=== PATIENT | female | born 1995 | race Caucasian/White ===

== ENCOUNTER 2017-04-08 19:42 | Inpatient (IN) | payer BC, OTHER ==
[2017-04-08 20:31] VITALS: BMI 25.2
[2017-04-08 21:04] LABS: BASO # 0.1 K/uL (0.0-0.2); BASO % 0.7 % (0.0-2.0); EOS # 0.1 K/uL (0.0-0.7); EOS % 0.6 % (0.0-4.0); HEMOGLOBIN 13.5 g/dL (12.0-16.0); LYMPH # 3.2 K/uL (1.0-4.3); LYMPH % 31.4 % (20.0-40.0); MEAN CELL VOLUME 85.6 fl (81.0-99.0); MEAN CORPUSCULAR HEMOGLOBIN 29.4 pg (27.0-31.0); MEAN CORPUSCULAR HGB CONC 34.3 g/dL (33.0-37.0); MEAN PLATELET VOLUME 11.3 fl (7.2-11.7); MONO # 0.8 K/uL (0.0-0.8); MONO % 8.2 % (0.0-10.0); NEUT % 59.1 % (50.0-75.0); NRBC % 0.1 % (0.0-0.0); RBC 4.6 Mil/uL (3.80-5.20); RED CELL DISTRIBUTION WIDTH 15.7 % (11.5-14.5); WHITE BLOOD COUNT 10.1 K/uL (4.8-10.8)
[2017-04-08] MEDS: Lactated Ringer's 1,000 ML IV SCH (21:16)
[2017-04-09] MEDS ORDERED: Nalbuphine 20 mg/ml Inj (1 ml) IVP STA (00:58)
[2017-04-09] MEDS ORDERED: Nalbuphine 20 mg/ml Inj (1 ml) ONE (01:00)
[2017-04-09] MEDS: Lactated Ringer's 1,000 ML IV SCH ×2 (05:13→06:49)
[2017-04-09] MEDS ORDERED: Fentanyl/Bupivacaine HCl 250 ML EPI ONE (06:55)
[2017-04-09] MEDS ORDERED: Lidocaine 1% Inj (20ml) ONE (08:23)
--- NOTE | 2017-04-09 09:01 | OBPN ---
Datetime: 04/09/2017 08:57 IP Progress Impression: Normal progression of labor IP Procedures: Sterile Vag Exam IP Progress Plan: Continue present management Membranes, Provider: Intact Contraction Comments Provider: q2-3min FHR - Baseline A Provider: 130s IP Progress Note Comment: Patient without complaints. Labor progressing well. Continue current manag ement. Maternal well-being and well-being reassuring at this time. Vital Signs Provider: Reviewed; Within Normal Limits FHR Category Provider Fetus A: Category I NICHD Variability Prov Fetus A: Moderate 6-25bpm Dilatation, Provider: 8 Effacement, Provider: 100 Station, Provider: 0 NICHD Decel Fetus A IP Provider: None Datetime: 04/08/2017 21:01 Gestation - Est Wks by US: 39.6 Presentation-Admit: Vertex
[2017-04-09] MEDS ORDERED: Oxycodone/Acetaminophen 5/325 mg Tab PO PRN ×4 (13:10→14:52)
[2017-04-09] MEDS ORDERED: Benzocaine/Menthol SPRAY TOP PRN (17:32)
[2017-04-10 07:59] LABS: HEMOGLOBIN 11.6 g/dL (12.0-16.0); MEAN CELL VOLUME 85.7 fl (81.0-99.0); MEAN CORPUSCULAR HGB CONC 33.8 g/dL (33.0-37.0); RBC 4.01 Mil/uL (3.80-5.20); RED CELL DISTRIBUTION WIDTH 15.7 % (11.5-14.5); WHITE BLOOD COUNT 13.2 K/uL (4.8-10.8)
--- NOTE | 2017-04-10 08:26 | OBPPN ---
Datetime: 04/10/2017 08:22 PP Pain Prov: Within normal limits PP Abdomen/Uterus Prov: Normal PP Lochia Prov: Normal PP Extremities Prov: Normal PP Progress Prov: Normal PP Impression Prov: Normal progression PP Plan Prov: Continue present management PP Progress Note Prov: PPD 1 s/p , doing well, breast feeding Continue current management Vital Signs Provider PP: Reviewed; Within Normal Limits
--- NOTE | 2017-04-11 07:57 | OBDCSUM ---
Datetime: 04/11/2017 07:56 Discharged to, Provider: Home Follow up at, Provider: Dr. Gaines Disch Instr Activity: Normal activity; May Shower Disch Instr Diet: Regular Discharge Instructions, Provider: Routine instructions given Discharge Diagnosis, Provider: Term Delivered Discharge Time: 04/11/2017 07:56 Follow up in weeks, Provider: 6 weeks Contraception discussed, Prov: No Disch Activity Restrictions: No exercising; No lifting; No sexual activity; Nothing in vagina - Inte rcourse, tampons, douche
--- NOTE | 2017-04-11 07:57 | OBPPN ---
Datetime: 04/11/2017 07:53 PP Pain Prov: Within normal limits PP Abdomen/Uterus Prov: Normal PP Lochia Prov: Normal PP Extremities Prov: Normal PP Progress Prov: Normal PP Impression Prov: Normal progression PP Plan Prov: Discharge PP Progress Note Prov: PPD 2 s/p , doing well, breast and bottle feeding Rx motrin given Discharge home today Vital Signs Provider PP: Reviewed; Within Normal Limits
[2017-04-11 22:02] VITALS: BP 125/72; PULSE 66; RESP 20; TEMP 99.2; O2SAT 100
--- NOTE | 2017-04-12 10:27 | OBDS ---
DELIVERY PERSONNEL Delivery Doctor: Leslye Gaines MD Transport Truck Driver: Teresa Saini RN Anesthesiologist: José Miguel Peters MD MATERNAL INFORMATION Delivery Anesthesia: Local; Epidural Medications in Delivery: cervidil Placenta Cultured: Yes Maternal Complications: None RN Comments: pt delivered viable boy, infant was suctioned, dried, and placed on maternal chest for skin to skin. apgars were 9 and 9. infant was taken to warmer to be weighed. mother was repaired for laceration. pt tolerated well, VSS. infant was placed again on maternal chest for skin to skin and latching. both remained in stable c ondition. Provider Comments: Normal spontaneous vaginal delivery. Patient delivered viable infant male with Apgars of 9 and 9 at one and 5 minutes respectively. Inf ant delivered via ANGELA position. Body cord 1 reduced. Placenta delivered spontaneously. Laceration r epaired, as above. Uterus firm and appropriately hemostatic following delivery. Patient tolerated del erasmo and repair well. No complications. Estimated blood loss 200 mL LABOR SUMMARY EDC: 04/09/2017 00:00 No. Babies in Womb: 1 Attempted: No Labor Anesthesia: Epidural LABOR INFORMATION Reason for Induction: Intrauterine Growth Retardation Onset of Labor: 04/09/2017 08:05 Complete Dilatation: 04/09/2017 10:50 Cervical Ripening Agents: Cervidil Oxytocin: N/A Group B Beta Strep: Negative MEMBRANES Membranes Rupture Method: Artificial Rupture of Membranes: 04/09/2017 10:50 Length of Rupture (hrs): 0.83 Amniotic Fluid Color: Clear Amniotic Fluid Amount: Small Amniotic Fluid Odor: Normal STAGES OF LABOR Stage 1 hrs: 2 Stage 1 min: 45 Stage 2 hrs: 0 Stage 2 min: 50 Stage 3 hrs: 0 Stage 3 min: 4 Total Time in Labor hrs: 3 Total Time in Labor min: 39 VAGINAL DELIVERY Laceration Extension: Second Degree Laceration Type: Perineal Laceration Repair: Yes Laceration Repair Note: Second-degree midline perineal laceration. Area infiltrated with 1% lidocain e. Laceration repaired with 2. 0 Rapide without complication. Patient tolerated well Initial Vag Sharps Count: 7 Final Vag Sharps Count: 7 Sponge Count Correct: Yes Sharps Count Correct: Yes BABY A INFORMATION Infant Delivery Date/Time: 04/09/2017 11:40 Method of Delivery: Vaginal Born in Route : No : N/A Forceps: N/A Vacuum Extraction: N/A Shoulder Dystocia : No SHOULDER DYSTOCIA BABY A Delivery Date/Time: 04/09/2017 11:40 PRESENTATION/POSITION BABY A Presentation: Cephalic PLACENTA INFORMATION BABY A Placenta Delivery Time : 04/09/2017 11:44 Placenta Method of Delivery: Spontaneous Placenta Status: Delivered SCORES BABY A Heart Rate 1 min: >100 bpm Resp Effort 1 min: Good Cry Reflex Irritability 1 min: Cough or Sneeze or Pulls Away Muscle Tone 1 min: Active Motion Color 1 min: Body [place], Extremities Blue Resuscitation Effort 1 min: N/A SCORE 1 MIN: 9 Heart Rate 5 min: >100 bpm Resp Effort 5 min: Good Cry Reflex Irritability 5 min: Cough or Sneeze or Pulls Away Muscle Tone 5 min: Active Motion Color 5 min: Body [place], Extremities Blue Resuscitation Effort 5 min: N/A SCORE 5 MIN: 9 INFANT INFORMATION BABY A Gestational Age at Delivery: 40.0 Gestational Status: Term Outcome : Liveborn Infant Condition : Stable Infant Sex: Male WEIGHT/LENGTH BABY A Infant Birthweight (gms): 2950 Weight (lb): 6 Infant Weight (oz): 8 CORD INFORMATION BABY A No. Cord Vessels: 3 Nuchal Cord : N/A Cord Blood Taken: Yes Infant Suction: Mouth
== END 2017-04-11 17:00 | disposition home or self-care (01) | DRG 775 ==
LOC: H.EROB2 19:42 → H.L&D 20:41 → H.OB/GYN 04-09 14:30
PROVIDERS: ADMIT Obstetrics & Gynecology; ATTEND Obstetrics & Gynecology
PROC: 4A1HXCZ Monitoring of Products of Conception, Cardiac Rate, External Approach (ICD-10-PCS; principal; 2017-04-08)
PROC: 10E0XZZ Delivery of Products of Conception, External Approach (ICD-10-PCS; 2017-04-08)
PROC: 0KQM0ZZ Repair Perineum Muscle, Open Approach (ICD-10-PCS; 2017-04-08)
DX: O36.5930 Maternal care for other known or suspected poor fetal growth, third trimester, not applicable or unspecified (principal); O70.1 Second degree perineal laceration during delivery; Z37.0 Single live birth; Z3A.40 40 weeks gestation of pregnancy